=== PATIENT | male | born 1995 | race African-American/Black ===

== ENCOUNTER 2021-03-08 11:58 | Emergency (ER) | payer SELFPAY ==
[2021-03-08] MEDS ORDERED: Ibuprofen 800 MG TAB ONE (13:35)
== END 2021-03-08 13:58 | disposition home or self-care (01) ==
LOC: ERS 11:58
DX: S70.12XA Contusion of left thigh, initial encounter (principal); F17.210 Nicotine dependence, cigarettes, uncomplicated; V89.2XXA Person injured in unspecified motor-vehicle accident, traffic, initial encounter
CPT/HCPCS: 72170